=== PATIENT | female | born 1985 | race Caucasian/White ===

== ENCOUNTER 2017-02-08 07:18 | Day surgery (SDC) | payer MEDICAID ==
[~2017-02-08 07:18] MED LIST: DEXAMETHASONE SOD PHOSPHATE INJ 4 MG/1 ML VIAL ONE; IBUPROFEN INJ 800 MG/8 ML VIAL IV ONE; LIDOCAINE 2% INJ-PF (20 MG/ML) 10 ML AMPUL ONE; MIDAZOLAM 2 MG/2 ML INJ ONE; ONDANSETRON HCL INJ/PF 4 MG/2 ML SDV ONE; PROPOFOL INJ 200 MG/20 ML VIAL IV ONE
[2017-02-08 07:56] LABS: HEMATOCRIT 37.3 % (36.0-47.0); HGB HCT DIFFERENCE 1.7; MEAN CORPUSCULAR HEMOGLOBIN 30.2 pg (27.0-33.4); MEAN CORPUSCULAR HGB CONC 34.9 g/dL (32.0-36.0); MEAN CORPUSCULAR VOLUME 87 fl (80-97); RED BLOOD COUNT 4.31 10^6/uL (3.72-5.28); RED CELL DISTRIBUTION WIDTH 12.8 % (11.5-14.0); WHITE BLOOD COUNT 14.4 10^3/uL (4.0-10.5)
[2017-02-08] MEDS ORDERED: DOXYCYCLINE HYCLATE 100 MG in DEXTROSE 5%-WATER 250 ML IV PRN (08:45)
[2017-02-08 08:48] LABS: APPEARANCE,URINE SLIGHTLY-CLOUDY; BILIRUBIN,URINE NEGATIVE (NEGATIVE); GLUCOSE, URINE NEGATIVE (NEGATIVE); KETONES,URINE NEGATIVE (NEGATIVE); LEUKOCYTE ESTERASE,URINE TRACE (NEGATIVE); NITRITE,URINE NEGATIVE (NEGATIVE); PROTEIN,URINE NEGATIVE (NEGATIVE); URINE SPECIFIC GRAVITY 1.021; UROBILINOGEN,URINE NEGATIVE mg/dL (<2.0)
[2017-02-08] MEDS ORDERED: FENTANYL CITRATE INJ/PF 100 MCG/2 ML AMPUL ONE (09:37)
[2017-02-08] MEDS ORDERED: MISOPROSTOL 0.2 MG TABLET ONE (09:55)
[2017-02-08] MEDS ORDERED: OXYTOCIN 10 UNIT/ML VIAL ONE (09:57)
[2017-02-08] MEDS ORDERED: ONDANSETRON HCL INJ/PF 4 MG/2 ML SDV IV PRN (10:07)
[2017-02-08] MEDS ORDERED: OXYCODONE-ACETAMINOPHEN 5-325 MG TABLET PO PRN ×4 (10:07→10:34)
[2017-02-08] MEDS ORDERED: MEPERIDINE HCL/PF INJ 25 MG/1 ML DISP.SYRIN IV PRN (10:07)
[2017-02-08] MEDS ORDERED: PROMETHAZINE HCL INJ 25 MG/1 ML VIAL IV PRN ×2 (10:07)
[2017-02-08] MEDS ORDERED: MORPHINE SULFATE 10 MG/ML INJ IV PRN (10:07)
[2017-02-08] MEDS ORDERED: FENTANYL CITRATE INJ/PF 100 MCG/2 ML AMPUL IV PRN ×3 (10:07)
[2017-02-08] MEDS ORDERED: DIPHENHYDRAMINE HCL 50 MG/ML VIAL IV PRN (10:07)
--- NOTE | 2017-02-08 10:28 | OPERATIVE REPORT E ---
Operative Report NAME: MAURILIO SORTO : 1985 AGE: 31Y DATE OF SURGERY: 02/08/2017 ROOM: PREOPERATIVE DIAGNOSIS: Missed ab at 8 weeks. POSTOPERATIVE DIAGNOSIS: Missed ab at 8 weeks. OPERATION: Suction dilation and curettage. SURGEON: JOSE SAMUEL M.D. ANESTHESIA: Dr. Zelaya with [facility]. FINDINGS: The uterus sounded to approximately 10 cm. Copious amounts of products of conception were obtained followed by considerable bleeding that was resolved with uterotonic. COMPLICATIONS: None. ESTIMATED BLOOD LOSS: Two-hundred mL. SPECIMENS REMOVED: Products of conception. PROCEDURE IN DETAIL: Patient was taken to the operating room, prepared and draped in normal sterile fashion in dorsal lithotomy position. Under sterile conditions, an in and out cath was performed of approximately 25 mL of clear urine. A sterile speculum was placed into the vagina and the cervix was prepped with Betadine and the cervix was grasped with a single toothed tenaculum on the anterior lip. The uterus was then sounded to approximately 10 cm with a uterine sound. The cervix was then dilated up to accommodate an 8 mm curved curette and this was inserted and the suction curettage was performed with gentle curettage. Three passes were made with copious amounts of products of conception obtained with the suction. At the end of the third pass there was a considerable stream of blood that was noted coming from the cervix and this was tamponaded without good hemostasis. Cytotec was brought into the room and 1000 mcg were placed per rectum and 20 units of Pitocin were given to the patient through the IV by Anesthesia. We continued to watch the bleeding and the speculum was removed from the vagina after a sponge stick had been placed at the cervix for tamponade. We held pressure for approximately 5-7 minutes. The sponge stick was removed and the speculum was reinserted. The serosa was found to be hemostatic at this point with no bleeding noted. The patient's vitals never changed throughout the procedure. We watched carefully for another 5 minutes and found no change in her status at this point and the bleeding continued to be resolved. Sponge, lap, and needle counts were correct x2. Instrument count was correct x2 and the patient was taken to recovery in stable condition. DICTATING PHYSICIAN: JOSE SAMUEL M.D. [id number] PHY#: [id number] ID: [id number] JOB#: [id number] ACCT: [id number] cc:JOSE SAMUEL M.D. >
[2017-02-08] MEDS ORDERED: IBUPROFEN 800 MG TABLET PO PRN (10:33)
[2017-02-08] MEDS ORDERED: HYDROMORPHONE HCL INJ/PF 2 MG/ML AMPULE IV PRN (10:33)
[2017-02-08 12:26] VITALS: BP 127/84
== END 2017-02-08 12:00 | disposition home or self-care (01) ==
LOC: OROUT 07:18
PROVIDERS: ATTEND Obstetrics & Gynecology
PROC: 10D17ZZ Extraction of Products of Conception, Retained, Via Natural or Artificial Opening (ICD-10-PCS; principal; 2017-02-08 09:30)
DX: O02.1 Missed abortion (principal); E66.9 Obesity, unspecified; Z68.41 Body mass index [BMI] 40.0-44.9, adult
CPT/HCPCS: 86900; 86901; 36415; 84703; 85027; 81001; 88305 ×2; 59820; J2250; J1100; J3490 ×2; J3010; J2590; J2405; J7060; J2704; J1741; 1965

== ENCOUNTER 2017-07-13 10:39 | Emergency (ER) | payer MEDICAID ==
[2017-07-13] MEDS ORDERED: NORMAL SALINE 1000 ML 1,000 ML IV ONE (10:53)
[2017-07-13] MEDS ORDERED: ONDANSETRON HCL INJ/PF 4 MG/2 ML SDV IV ONE (10:54)
--- NOTE | 2017-07-13 10:59 | ER Document Report ---
ED Medical Screen (RME) - General Chief Complaint: Abdominal Pain Stated Complaint: ABDOMINAL PAIN,VOMITING Time Seen by Provider: 07/13/17 10:53 Mode of Arrival: Ambulatory Information source: Patient TRAVEL OUTSIDE OF THE [place] IN LAST 30 DAYS: No - HPI Patient complains to provider of: abd pain//vomiting blood Onset: Other - pt is G2Ab1 approx 7 weeks along with c/o lower abdominal pain with vomiting blood earlier today - Related Data Allergies/Adverse Reactions: Penicillins Allergy (Verified 07/13/17 10:44) Past Medical History - Social History Chew tobacco use (# tins/day): No Frequency of alcohol use: None Drug Abuse: None - Past Medical History Cardiac Medical History: Denies: Hx Coronary Artery Disease, Hx Heart Attack, Hx Hypertension Pulmonary Medical History: Denies: Hx Asthma, Hx Bronchitis, Hx COPD, Hx Pneumonia Neurological Medical History: Denies: Hx Cerebrovascular Accident, Hx Seizures Renal/ Medical History: Denies: Hx Peritoneal Dialysis Musculoskeltal Medical History: Denies Hx Arthritis Past Surgical History: Reports: Hx Adenoidectomy, Hx Gynecologic Surgery - D&C, Hx Tonsillectomy - T&A - Immunizations Immunizations up to date: Yes Hx Diphtheria, Pertussis, Tetanus Vaccination: Yes
[2017-07-13 11:28] LABS: ABSOLUTE BASOPHILS # (AUTO) 0.1 10^3/uL (0.0-0.2); ABSOLUTE EOSINOPHILS # (AUTO) 0.2 10^3/uL (0.0-0.6); ABSOLUTE MONOCYTES (AUTO) 0.7 10^3/uL (0.1-1.4); ABSOLUTE NEUT (AUTO) 12.4 10^3/uL (1.7-8.2); BASOPHILS % (AUTO) 0.5 % (0-2); HEMATOCRIT 38.9 % (36.0-47.0); HEMOGLOBIN 13.3 g/dL (12.0-15.5); LYMPHOCYTES % (AUTO) 12.9 % (13-45); MEAN CORPUSCULAR HEMOGLOBIN 29.6 pg (27.0-33.4); MEAN CORPUSCULAR HGB CONC 34.3 g/dL (32.0-36.0); MEAN CORPUSCULAR VOLUME 86 fl (80-97); MONOCYTES % (AUTO) 4.4 % (3-13); RED BLOOD COUNT 4.51 10^6/uL (3.72-5.28); RED CELL DISTRIBUTION WIDTH 13.5 % (11.5-14.0); SEGMENTED NEUTROPHILS % (AUTO) 81.2 % (42-78); WHITE BLOOD COUNT 15.2 10^3/uL (4.0-10.5)
[2017-07-13 11:37] LABS: AMORPHOUS SEDIMENT,URINE TRACE /HPF; APPEARANCE,URINE CLOUDY; BILIRUBIN,URINE NEGATIVE (NEGATIVE); CALCIUM OXALATE CRYSTALS,URINE TOO NUMEROUS TO CNT /HPF; GLUCOSE, URINE NEGATIVE (NEGATIVE); KETONES,URINE NEGATIVE (NEGATIVE); LEUKOCYTE ESTERASE,URINE TRACE (NEGATIVE); NITRITE,URINE NEGATIVE (NEGATIVE); PROTEIN,URINE 100 mg/dL (NEGATIVE); URINE SPECIFIC GRAVITY 1.032; UROBILINOGEN,URINE NEGATIVE mg/dL (<2.0)
--- NOTE | 2017-07-13 11:37 | ER Document Report ---
ED GI/ - General Chief Complaint: Abdominal Pain Stated Complaint: ABDOMINAL PAIN,VOMITING Time Seen by Provider: 07/13/17 10:53 Mode of Arrival: Ambulatory Notes: Patient is a 7 week female who presents to the ED complaining of mild abdominal pain and cramping with nausea and vomiting with concern for hematemesis. She states She found out she was last week, when she started feeling nauseous. She has not had an OB appointment to confirm IUP. She states over the past two days she has had a dull ache with intermittent sharp fleeting pain no higher than a 3 in severity for the past two days. She states this am that she felt more nauseous then normal and has been dry heaving with one episode of emesis which she felt was concerning for food from dinner the evening prior as well as possible blood. She states it was mildly sprinkled throughout but denies brian blood/clots/coffee ground emesis/hematochezia. PMH significant for missed in 01/2017 requiring D&C completed here. Otherwise healthy female TRAVEL OUTSIDE OF THE [place] IN LAST 30 DAYS: No - Related Data Allergies/Adverse Reactions: Penicillins Allergy (Verified 07/13/17 10:44) Past Medical History - General Information source: Patient - Social History Smoking Status: Former Smoker Chew tobacco use (# tins/day): No Frequency of alcohol use: None Drug Abuse: None Family History: None - Past Medical History Cardiac Medical History: Denies: Hx Coronary Artery Disease, Hx Heart Attack, Hx Hypertension Pulmonary Medical History: Denies: Hx Asthma, Hx Bronchitis, Hx COPD, Hx Pneumonia Neurological Medical History: Denies: Hx Cerebrovascular Accident, Hx Seizures Renal/ Medical History: Denies: Hx Peritoneal Dialysis Musculoskeltal Medical History: Denies Hx Arthritis Past Surgical History: Reports: Hx Adenoidectomy, Hx Gynecologic Surgery - D&C, Hx Tonsillectomy - T&A - Immunizations Immunizations up to date: Yes Hx Diphtheria, Pertussis, Tetanus Vaccination: Yes Review of Systems - Review of Systems Constitutional: No symptoms reported EENT: No symptoms reported Cardiovascular: No symptoms reported Respiratory: No symptoms reported Genitourinary: See HPI Female Genitourinary: See HPI -: Yes All other systems reviewed and negative Physical Exam - Vital signs Vitals: Temp Pulse Resp BP Pulse Ox 98.3 F 78 18 119/77 99 07/13/17 13:14 07/13/17 13:14 07/13/17 13:14 07/13/17 13:14 07/13/17 13:14 - Notes Notes: PHYSICAL EXAM GENERAL: Alert, interacts well. LUNGS: Clear to auscultation bilaterally, no wheezes, rales, or rhonchi. No respiratory distress. HEART: Regular rate and rhythm. No murmurs, gallops, or rubs. ABDOMEN: Soft, obese, nondistended, mild suprapubic tenderness. No guarding, rebound, or rigidity.. Bowel sounds present in all 4 quadrants. EXTREMITIES: Moves all 4 extremities spontaneously. No edema, radial and dorsalis pedis pulses 2/4 bilaterally. No cyanosis. NEUROLOGICAL: Alert and oriented x4. Normal speech. PSYCH: Normal affect, normal mood. SKIN: Warm, dry, normal turgor. No rashes or lesions noted. Course - Re-evaluation Re-evalutation: 07/13/17 12:17 Patient is a 31-year-old female hemodynamically stable, no acute distress afebrile. Main complaint today was nausea and vomiting. No evidence of leukocytosis with left shift noted on CBC. No evidence of anemia. Patient has not been throwing up since arrival. Zofran has helped. She denies any nausea currently. 07/13/17 13:51 Ultrasound shows living IUP without any evidence of subchorionic [place] [address] at this time. No evidence of vaginal bleeding or concern for threatened miscarriage. Discussed with patient to follow-up with her [facility] as scheduled or return to the emergency department with any worsening symptoms. Patient agrees with plan. Patient was tolerated p.o. fluids without any difficulty denies any nausea or abdominal pain at this time. Patient stable for discharge home. Which correlates with IUP age of approximately 6 weeks. - Vital Signs Vital signs: Temp Pulse Resp BP Pulse Ox 98.3 F 78 18 119/77 99 07/13/17 13:14 07/13/17 13:14 07/13/17 13:14 07/13/17 13:14 07/13/17 13:14 - Laboratory Result Diagrams: 07/13/17 11:11 07/13/17 11:11 Laboratory results interpreted by me: 07/13/17 07/13/17 07/13/17 11:00 11:11 11:11 WBC 15.2 H Seg Neutrophils % 81.2 H Lymphocytes % 12.9 L Absolute Neutrophils 12.4 H Sodium 136.9 L Carbon Dioxide 18 L Glucose 119 H Alkaline Phosphatase 130 H Beta HCG, Quant 04448.00 H Urine Protein 100 H Urine Blood MODERATE H Ur Leukocyte Esterase TRACE H - Diagnostic Test Radiology reviewed: Image reviewed, Reports reviewed Discharge - Discharge Clinical Impression: Nausea and vomiting during Condition: Good Disposition: HOME, SELF-CARE Additional Instructions: -There is no evidence of compromise of your current . You are currently 6 weeks with a due date of 03/06/2018 -Please be sure to follow-up with her [facility] as indicated otherwise follow-up at the emergency department for any signs of worsening symptoms, vaginal bleeding, worsening pain, if he cannot keep down any solids or fluids. VOMITING: Vomiting (or nausea without vomiting) can be caused by many other different problems. It can mean that something's wrong with the stomach, such as ulcers or inflammation or the intestinal tract, such as appendicitis. But it can also be a symptom of a problem that has nothing to do with the stomach or intestines. Vomiting is common with severe headaches, earaches, tonsillitis, and kidney infections, etc. We see it with pneumonia or heart attacks. Drugs can cause nausea and vomiting. Many abdominal problems cause vomiting; for example, gallstones, kidney stones, pancreatitis, and intestinal obstruction ( blocked bowels). In most cases, curing the vomiting depends on fixing the problem that caused it. For temporary relief, we may use an anti-nausea medicine. For home use, we can prescribe suppositories, chewable pills, pills that dissolve in the mouth, or liquid anti-nausea drugs. If the vomiting seems to be caused by a problem in the stomach, acid-suppressing drugs may be prescribed as well. It's important to avoid dehydration. Sip small amounts of clear liquids ( soft drinks, tea, broth, etc) . Try to take fluids frequently even if you are vomiting to prevent dehydration. Take increasing amounts of fluid and when liquids are being consumed successfully, advance to small amounts of bland food (toast, soups, mashed potatoes, etc.) until you are able to resume a regular diet. Avoid aspirin, tobacco, and alcohol. If the vomiting worsens, if the problem that's making you vomit worsens, or if there's evidence of bleeding in the stomach (such as black, tarry stool, or bloody or black vomit), you should return immediately. Also, return if abdominal pain worsens or becomes localized to one area or you develop high fever. Call your doctor if you aren't improved in 24 hours. INTRAVENOUS (I V) FLUIDS: As part of your care today, you received intravenous (IV) fluids. IV fluids are administered to patients who are dehydrated or to those who have certain chemical (electrolyte) abnormalities that need correcting. ANTINAUSEA MEDICATION: You have been given a medication to suppress nausea and vomiting. This type of medication can be given as a shot, pill, or suppository. It will usually last for many hours. Pills and shots usually last six to eight hours. For the typical illness, only one or two doses of the medication may be necessary. Mild lightheadedness may occur. This type of medicine can cause drowsiness. Do not drive or operate dangerous machinery while under its influence. Do not mix with alcohol. See your doctor at once if you have muscle spasms or tightness, or uncontrollable motions (particularly of the neck, mouth, or jaw). Persistent vomiting or severe lightheadedness should also be evaluated by the physician. FOLLOW-UP CARE: If you have been referred to a physician for follow-up care, call the physician s office for an appointment as you were instructed or within the next two days. If you experience worsening or a significant change in your symptoms, notify the physician immediately or return to the Emergency Department at any time for re-evaluation. Prescriptions: Ondansetron [Zofran Odt 4 mg Tablet] 1 tab PO Q4H PRN #15 tab.rapdis PRN Reason: For Nausea/Vomiting [facility] [NO LOCAL MD] - Follow up in 1 month
[2017-07-13 11:44] LABS: ALANINE AMINOTRANSFERASE 25 U/L (9-52); ALBUMIN 4.5 g/dL (3.5-5.0); ALKALINE PHOSPHATASE 130 U/L (38-126); ANION GAP 17 (5-19); ASPARTATE AMINO TRANSFERASE 16 U/L (14-36); BILIRUBIN,DIRECT 0.3 mg/dL (0.0-0.4); BILIRUBIN,TOTAL 0.5 mg/dL (0.2-1.3); BLOOD UREA NITROGEN 10 mg/dL (7-20); CALCIUM 10.1 mg/dL (8.4-10.2); CARBON DIOXIDE 18 mmol/L (22-30); CHLORIDE 102 mmol/L (98-107); CREATININE RESULT 0.69 mg/dL (0.52-1.25); GLUCOSE 119 mg/dL (75-110); LIPASE 101.7 U/L (23-300); POTASSIUM 4.4 mmol/L (3.6-5.0); SODIUM 136.9 mmol/L (137-145); TOTAL PROTEIN 7.5 g/dL (6.3-8.2)
--- NOTE | 2017-07-13 12:19 | RADIOLOGY REPORT (SQ) ---
EXAM DESCRIPTION: U/S OB TRANSVAG W/DOPPLER COMPLETED DATE/TIME: 07/13/2017 12:03 pm REASON FOR STUDY: abd pain COMPARISON: None. TECHNIQUE: Endovaginal static and realtime grayscale images acquired of the pelvis. Additional selec fuad spectral and color Doppler images recorded. All images stored on PACs. bHCG: Not available. Last menses 05/30/2017 LIMITATIONS: None. FINDINGS: FETUS: Living intrauterine . EGA: 6 weeks 2 days by mean sac diameter and crown-rump length HALLEY: 03/06/2018 FHR: Cardiac flicker noted at real-time, M-mode Doppler of 109 beats per minute. SUBCHORIONIC BLEED: No SIZE OF BLEED: Not applicable. UTERUS: No masses. No anomalies. 8.6 x 4.4 x 4.5 cm in size. CERVICAL LENGTH: 3 cm Closed. RIGHT ADNEXA: Not visualized due to adnexal bowel gas. LEFT ADNEXA: Normal ovary with normal vascular flow. Left ovary 2 x 1.2 x 1.1 cm in size No adnexal free fluid. No adnexal masses. FREE FLUID: None. OTHER: No other significant finding. IMPRESSION: LIVING INTRAUTERINE . EGA 6 weeks 2 days. Embryo cardiac activity 109 beats per minute Trimester of : First - 0 to 13 weeks. TECHNICAL DOCUMENTATION: JOB ID: [id number] [employer]- All Rights Reserved
[2017-07-13 14:16] VITALS: BP 139/82
== END 2017-07-13 14:16 | disposition home or self-care (01) ==
LOC: ER 10:39
DX: O21.9 Vomiting of pregnancy, unspecified (principal); R10.9 Unspecified abdominal pain; Z3A.01 Less than 8 weeks gestation of pregnancy; Z88.0 Allergy status to penicillin
CPT/HCPCS: 99284; 36415; 84702; 83690; 85025; 80053; 81001; 76817; 93976; J2405; J7030

== ENCOUNTER 2017-07-24 00:28 | Emergency (ER) | payer MEDICAID ==
--- NOTE | 2017-07-24 02:02 | ER Document Report ---
ED GI/ <MARGARET MENDES - Last Filed: 07/24/17 03:59> - General Mode of Arrival: Ambulatory Information source: Patient TRAVEL OUTSIDE OF THE [place] IN LAST 30 DAYS: No <ALISON LANG - Last Filed: 07/24/17 04:45> - General Chief Complaint: Vag Bleeding, +preg <12wks Stated Complaint: VAGINAL BLEEDING AND CRAMPING Time Seen by Provider: 07/24/17 01:50 Notes: Patient is a 31-year-old female presenting emergency department for vaginal bleeding. Patient states she is a 7 weeks with a history of A1. Patient states that she started spotting at 00:30 this morning and now she is having a heavier flow with some clots. Patient also complains of pelvic cramping. Patient denies any urinary symptoms. Patient states she had a miscarriage with D&C on 02/08/2017; patient states she was about 10 weeks at that time. Patient's blood type is O+. PCP is Dr. Fernandes at [facility]. (ALISON LANG) - Related Data Allergies/Adverse Reactions: Penicillins Allergy (Verified 07/13/17 10:44) Past Medical History - General Information source: Patient - Social History Smoking Status: Never Smoker Cigarette use (# per day): No Chew tobacco use (# tins/day): No Smoking Education Provided: No Frequency of alcohol use: None Drug Abuse: None Family History: None Patient has suicidal ideation: No Patient has homicidal ideation: No Past Surgical History: Reports: Hx Adenoidectomy, Hx Dilation and Curettage - , Hx Gynecologic Surgery - D&C, Hx Tonsillectomy - T&A - Immunizations Immunizations up to date: Yes Hx Diphtheria, Pertussis, Tetanus Vaccination: Yes <ALISON LANG - Last Filed: 07/24/17 04:45> Review of Systems - Review of Systems Constitutional: No symptoms reported EENT: No symptoms reported Cardiovascular: No symptoms reported Respiratory: No symptoms reported Gastrointestinal: See HPI, Abdominal pain Genitourinary: No symptoms reported Female Genitourinary: See HPI, , Vaginal bleeding Musculoskeletal: No symptoms reported Skin: No symptoms reported Hematologic/Lymphatic: No symptoms reported Neurological/Psychological: No symptoms reported -: Yes All other systems reviewed and negative <ALISON LANG - Last Filed: 07/24/17 04:45> Physical Exam <VAUGHNMARGARET Sorensen - Last Filed: 07/24/17 03:59> - Vital signs Interpretation: Hypertensive <ALISON LANG - Last Filed: 07/24/17 04:45> - Vital signs Vitals: Temp Pulse Resp BP Pulse Ox 98.3 F 89 16 144/80 H 100 07/24/17 01:20 07/24/17 01:20 07/24/17 01:20 07/24/17 01:20 07/24/17 01:20 - Notes Notes: GENERAL: Alert, interacts well. No acute distress. HEAD: Normocephalic, atraumatic. EYES: Appear normal. Pupils equal, round, and reactive to light. ENT: Moist mucus membranes, tongue midline. NECK: Full range of motion. Supple. Trachea midline. LUNGS: Clear to auscultation bilaterally, no wheezes, rales, or rhonchi. No respiratory distress. HEART: Regular rate and rhythm. No murmurs, gallops, or rubs. ABDOMEN: Soft, non-tender. Non-distended. Normal bowel sounds. EXTREMITIES: Moves all 4 extremities spontaneously. Normal strength. No edema. NEUROLOGICAL: Alert and oriented x3. Normal speech. No focal neurological deficits. GCS 15. PSYCH: Normal affect, normal mood. SKIN: Warm, dry, normal turgor. No rashes or lesions noted. (ALISON LANG) Course - Laboratory Result Diagrams: 07/24/17 02:11 - Diagnostic Test Radiology reviewed: Reports reviewed - Ultrasound shows a 7 week 4 day viable with heart rate of 144. There is no subchorionic bleed seen. There is minimal fluid in the cervical canal. <VAUGHNMARGARET Sorensen - Last Filed: 07/24/17 03:59> - Laboratory Result Diagrams: 07/24/17 02:11 <ALISON LANG - Last Filed: 07/24/17 04:45> - Vital Signs Vital signs: Temp Pulse Resp BP Pulse Ox 97.9 F 80 16 134/86 H 100 07/24/17 04:09 07/24/17 04:09 07/24/17 04:09 07/24/17 04:09 07/24/17 04:09 - Laboratory Laboratory results interpreted by me: 07/24/17 07/24/17 07/24/17 02:04 02:11 02:11 WBC 16.6 H Absolute Neutrophils 12.8 H Beta HCG, Quant 640851.00 H Urine Blood LARGE H Discharge <VAUGHNMARGARET - Last Filed: 07/24/17 03:59> <ALISON LANG - Last Filed: 07/24/17 04:45> - Discharge Clinical Impression: Vaginal bleeding before 22 weeks gestation, with 7 completed weeks gestation Condition: Stable Disposition: HOME, SELF-CARE Additional Instructions: Bleeding During Early : You have been evaluated for passing blood while . While we take this symptom very seriously, most women with your degree of bleeding will go on to have a perfectly normal baby. At this time, there is no indication that a miscarriage will occur. (A miscarriage occurs when the fetus is abnormal. There is no medicine or treatment to prevent it.) A more serious cause of bleeding is tubal . An ultrasound can show whether the is in the uterus or in the tube. Sometimes in early , no fetus is seen. In this case, careful follow-up, including repeat blood tests and repeat ultrasound, is necessary. You should rest in bed until the symptoms have resolved. Do not douche or have sex for at least a week, or until OK'd by the doctor. Don't use tampons. Call the doctor or return for re-examination if there is an increase in bleeding or cramping, extreme weakness, fainting, new abdominal pain, fever, or passage of tissue. Your ultrasound showed a measuring 7 weeks 4 days with a heart rate of 144. There was no subchorionic bleed noted. You should drink plenty fluids and rest until the bleeding and cramping has stopped. Follow-up with your [facility] [facility] doctor in the next few days for recheck. Referrals: JOSE SAMUEL MD [Primary Care Provider] - Follow up in 3-5 days Scribe Attestation: 07/24/17 04:02 I personally performed the services described in the documentation, reviewed and edited the documentation which was dictated to the scribe in my presence, and it accurately records my words and actions. (MARGARET MENDES) Scribe Documentation - Scribe Written by Scribe:: Maureen Perez, 07/24/2017 2:20 acting as scribe for :: Vaughn <ALISON LANG - Last Filed: 07/24/17 04:45>
[2017-07-24 02:22] LABS: ABSOLUTE BASOPHILS # (AUTO) 0.1 10^3/uL (0.0-0.2); ABSOLUTE EOSINOPHILS # (AUTO) 0.1 10^3/uL (0.0-0.6); ABSOLUTE MONOCYTES (AUTO) 0.7 10^3/uL (0.1-1.4); ABSOLUTE NEUT (AUTO) 12.8 10^3/uL (1.7-8.2); BASOPHILS % (AUTO) 0.3 % (0-2); EOSINOPHILS % (AUTO) 0.7 % (0-6); HEMATOCRIT 36.2 % (36.0-47.0); HEMOGLOBIN 12.7 g/dL (12.0-15.5); HGB HCT DIFFERENCE 1.9; LYMPHOCYTES % (AUTO) 17.8 % (13-45); MEAN CORPUSCULAR HEMOGLOBIN 30.2 pg (27.0-33.4); MEAN CORPUSCULAR VOLUME 86 fl (80-97); MONOCYTES % (AUTO) 4.3 % (3-13); RED BLOOD COUNT 4.19 10^6/uL (3.72-5.28); RED CELL DISTRIBUTION WIDTH 13.6 % (11.5-14.0); SEGMENTED NEUTROPHILS % (AUTO) 76.9 % (42-78); WHITE BLOOD COUNT 16.6 10^3/uL (4.0-10.5)
[2017-07-24 03:11] LABS: APPEARANCE,URINE SLIGHTLY-CLOUDY; BILIRUBIN,URINE NEGATIVE (NEGATIVE); CALCIUM OXALATE CRYSTALS,URINE MANY /HPF; GLUCOSE, URINE NEGATIVE (NEGATIVE); KETONES,URINE NEGATIVE (NEGATIVE); LEUKOCYTE ESTERASE,URINE NEGATIVE (NEGATIVE); NITRITE,URINE NEGATIVE (NEGATIVE); PROTEIN,URINE NEGATIVE (NEGATIVE); UROBILINOGEN,URINE NEGATIVE mg/dL (<2.0)
--- NOTE | 2017-07-24 03:41 | RADIOLOGY REPORT (SQ) ---
EXAM DESCRIPTION: U/S OB TRANSVAGINAL W/O DOP COMPLETED DATE/TIME: 07/24/2017 3:20 am REASON FOR STUDY: 7w5d, bleeding, cramping COMPARISON: 07.13.17 TECHNIQUE: Transvaginal static and realtime grayscale images acquired of the pelvis. Additional new cted spectral and color Doppler images recorded. All images stored on PACs. bHCG: Not available. LIMITATIONS: None. FINDINGS: FETUS: Living intrauterine . EGA: 7 weeks and 4 days HALLEY: 03/08/2018 FHR: 144 beats per minute. SUBCHORIONIC BLEED: No. SIZE OF BLEED: Not applicable. UTERUS: No masses. No anomalies. CERVICAL LENGTH: 3.4 cm. Closed. Minimal fluid within the cervical canal. RIGHT ADNEXA: Ovary not identified. No adnexal free fluid. No adnexal masses. LEFT ADNEXA: Ovary not identified. No adnexal free fluid. No adnexal masses. FREE FLUID: None. OTHER: No other significant finding. IMPRESSION: LIVING INTRAUTERINE . EGA 7 weeks and 4 days Trimester of : First - 0 to 13 weeks. TECHNICAL DOCUMENTATION: JOB ID: [id number] [employer]- All Rights Reserved
[2017-07-24 04:22] VITALS: BP 134/86
== END 2017-07-24 04:09 | disposition home or self-care (01) ==
LOC: ER 00:28
DX: O20.9 Hemorrhage in early pregnancy, unspecified (principal); Z3A.01 Less than 8 weeks gestation of pregnancy; Z88.0 Allergy status to penicillin
CPT/HCPCS: 36415; 76817; 81001; 84702; 85025; 99284

== ENCOUNTER 2017-07-28 17:08 | Emergency (ER) | payer MEDICAID ==
[2017-07-28 19:32] LABS: ABSOLUTE EOSINOPHILS # (AUTO) 0.1 10^3/uL (0.0-0.6); ABSOLUTE LYMPHOCYTES (AUTO) 2.5 10^3/uL (0.5-4.7); BASOPHILS % (AUTO) 0.2 % (0-2); EOSINOPHILS % (AUTO) 0.4 % (0-6); HEMATOCRIT 39.3 % (36.0-47.0); HEMOGLOBIN 13.5 g/dL (12.0-15.5); HGB HCT DIFFERENCE 1.2; LYMPHOCYTES % (AUTO) 13.3 % (13-45); MEAN CORPUSCULAR HGB CONC 34.4 g/dL (32.0-36.0); MEAN CORPUSCULAR VOLUME 87 fl (80-97); MONOCYTES % (AUTO) 5.6 % (3-13); RED BLOOD COUNT 4.51 10^6/uL (3.72-5.28); RED CELL DISTRIBUTION WIDTH 13.6 % (11.5-14.0); SEGMENTED NEUTROPHILS % (AUTO) 80.5 % (42-78); WHITE BLOOD COUNT 18.7 10^3/uL (4.0-10.5)
--- NOTE | 2017-07-28 19:45 | ER Document Report ---
ED Medical Screen (RME) - General Chief Complaint: Vag Bleeding, +preg <12wks Stated Complaint: VAGINAL BLEEDING Time Seen by Provider: 07/28/17 18:32 Notes: 31-year-old female presents emergency department complaining of intermittent vaginal bleeding since Monday, states she has been seen by an UI DESIGNER since then and had an ultrasound that showed an intrauterine with normal heartbeat and a closed cervix however since that time she has developed heavy vaginal bleeding that she states is bright red and less than 1 pad per hour. Denies dizziness or lightheadedness, denies lower abdominal pain, she is a A1. TRAVEL OUTSIDE OF THE [place] IN LAST 30 DAYS: No - Related Data Allergies/Adverse Reactions: Penicillins Allergy (Verified 07/28/17 18:44) Past Medical History - Social History Cigarette use (# per day): No Frequency of alcohol use: None Drug Abuse: None Lives with: Spouse/Significant other Family history: Reviewed & Not Pertinent - Past Medical History Cardiac Medical History: Denies: Hx Coronary Artery Disease, Hx Heart Attack, Hx Hypertension Pulmonary Medical History: Denies: Hx Asthma, Hx Bronchitis, Hx COPD, Hx Pneumonia Neurological Medical History: Denies: Hx Cerebrovascular Accident, Hx Seizures Renal/ Medical History: Denies: Hx Peritoneal Dialysis Musculoskeltal Medical History: Denies Hx Arthritis Past Surgical History: Reports: Hx Adenoidectomy, Hx Dilation and Curettage - , Hx Gynecologic Surgery - D&C, Hx Tonsillectomy - T&A - Immunizations Immunizations up to date: Yes Hx Diphtheria, Pertussis, Tetanus Vaccination: Yes Review of Systems - Review of Systems Constitutional: No symptoms reported EENT: No symptoms reported Female Genitourinary: See HPI -: Yes All other systems reviewed and negative Physical Exam - Vital signs Vitals: Temp Pulse Resp BP Pulse Ox 98.3 F 98 20 133/83 H 98 07/28/17 17:21 07/28/17 17:21 07/28/17 17:21 07/28/17 17:21 07/28/17 17:21 - Notes Notes: GENERAL: Alert, interacts well. No acute distress. HEAD: Normocephalic, atraumatic EYES: Pupils equal, round and reactive to light, extraocular movements intact. ENT: Oral mucosa moist, tongue midline. NECK: Full range of motion, supple, trachea midline. LUNGS: Clear to auscultation bilaterally, no wheezes, rales or rhonchi, no respiratory distress. HEART: Regular rate and rhythm, no murmurs, gallops, rubs. ABDOMEN: Soft, nontender, nondistended, bowel sounds present in all 4 quadrants. EXTREMITIES: Moves all 4 extremities spontaneously, no edema, radial pulses 2/4 bilaterally. No cyanosis. NEUROLOGICAL: Alert and oriented x3, normal speech. PSYCH: Normal mood, normal affect. SKIN: Warm, Dry, normal turgor, no rashes or lesions noted. Course - Re-evaluation Re-evalutation: 07/28/17 21:10 Living intrauterine 8 weeks 2 days heart rate is 165 bpm, there is now a subchorionic hemorrhage which is 2.9 x 1.8 x 3.6 cm, the cervix is closed. Rhogam is not indicated as she is O+. The new subchorionic hemorrhage explains the bleeding. Patient will be discharged home on pelvic rest has a follow-up appointment on Monday. - Vital Signs Vital signs: Temp Pulse Resp BP Pulse Ox 98.3 F 90 18 140/90 H 99 07/28/17 17:21 07/28/17 21:09 07/28/17 21:09 07/28/17 21:09 07/28/17 21:09 - Laboratory Result Diagrams: 07/28/17 19:10 Laboratory results interpreted by me: 07/28/17 19:10 WBC 18.7 H Seg Neutrophils % 80.5 H Absolute Neutrophils 15.0 H Doctor's Discharge - Discharge Clinical Impression: Vaginal bleeding before 22 weeks gestation Subchorionic hemorrhage in first trimester Qualifiers: Fetus number: single or unspecified fetus Qualified Code(s): O41.8X10 - Other specified disorders of amniotic fluid and membranes, first trimester, not applicable or unspecified; O46.8X1 - Other antepartum hemorrhage, first trimester Condition: Stable Disposition: HOME, SELF-CARE Additional Instructions: You have a subchorionic hemorrhage. It is 2.9 x 1.8 x 3.6 cm. Do not put anything in your vagina until the bleeding stops or you are seen by OB. Forms: Elevated Blood Pressure
--- NOTE | 2017-07-28 21:00 | RADIOLOGY REPORT (SQ) ---
EXAM DESCRIPTION: U/S OB TRANSVAG W/DOPPLER COMPLETED DATE/TIME: 07/28/2017 8:42 pm REASON FOR STUDY: 8 wk , vaginal bleeding COMPARISON: 07/13/2017 TECHNIQUE: Transvaginal static and realtime grayscale images acquired of the pelvis. Additional new cted spectral and color Doppler images recorded. All images stored on PACs. bHCG: Not available. LIMITATIONS: None. FINDINGS: FETUS: Living intrauterine . EGA: 8 weeks 2 days HALLEY: 03/07/2018 FHR: 165 beats per minute. SUBCHORIONIC BLEED: Yes. SIZE OF BLEED: 2.9 x 1.8 x 3.6 cm. UTERUS: Normal. CERVICAL LENGTH: 4.1 cm. Closed. RIGHT ADNEXA: Ovary not identified. No adnexal free fluid. No adnexal masses. LEFT ADNEXA: Ovary not identified. No adnexal free fluid. No adnexal masses. FREE FLUID: None. OTHER: No other significant finding. IMPRESSION: LIVING INTRAUTERINE . EGA 8 WEEKS 2 DAYS. SUBCHORIONIC HEMATOMA ABOVE. Trimester of : First - 0 to 13 weeks. TECHNICAL DOCUMENTATION: JOB ID: [id number] [employer]- All Rights Reserved
[2017-07-28 21:09] VITALS: BP 140/90
== END 2017-07-28 21:09 | disposition home or self-care (01) ==
LOC: ER 17:08
DX: O46.8X9 Other antepartum hemorrhage, unspecified trimester (principal); Z3A.00 Weeks of gestation of pregnancy not specified; Z88.0 Allergy status to penicillin
CPT/HCPCS: 36415; 76817; 84702; 85025; 86900; 86901; 93976; 99284

== ENCOUNTER 2018-06-12 21:55 | Emergency (ER) | payer MEDICAID ==
--- NOTE | 2018-06-12 22:49 | RADIOLOGY REPORT (SQ) ---
EXAM DESCRIPTION: FINGER LEFT COMPLETED DATE/TIME: 06/12/2018 10:14 pm REASON FOR STUDY: jammed L middle finger/ pain COMPARISON: None. NUMBER OF VIEWS: Three views. TECHNIQUE: AP, lateral, and oblique images acquired of the left third finger. LIMITATIONS: None. FINDINGS: MINERALIZATION: Normal. BONES: No acute fracture or dislocation. No worrisome bone lesions. SOFT TISSUES: No soft tissue swelling. No foreign body. OTHER: No other significant finding. IMPRESSION: NO RADIOGRAPHIC EVIDENCE OF ACUTE INJURY. COMMENT: SITE OF TRAUMA/COMPLAINT MARKED/STAMP COMPLETED: No TECHNICAL DOCUMENTATION: JOB ID: [id number] [employer]- All Rights Reserved Reading location - IP/workstation name: [email or web address]
[2018-06-12 23:05] VITALS: BP 151/88
--- NOTE | 2018-06-13 00:07 | ER Document Report ---
HPI - HPI Patient complains to provider of: left middle finger injury Pain Level: 4 Context: Patient is a 32-year-old female who comes emergency department for chief complaint of injury to the left middle finger. She accidentally jammed her hand while jerking her hand, she jammed it on the other arm. She reports pain especially with movement and possible small swelling. She denies any other injuries or complaints. - REPRODUCTIVE Reproductive: DENIES: : Past Medical History - General Information source: Patient - Social History Smoking Status: Never Smoker Frequency of alcohol use: None Drug Abuse: None Lives with: Family Family History: None - Medical History Medical History: Negative - Past Medical History Cardiac Medical History: Denies: Hx Coronary Artery Disease, Hx Heart Attack, Hx Hypertension Pulmonary Medical History: Denies: Hx Asthma, Hx Bronchitis, Hx COPD, Hx Pneumonia Neurological Medical History: Denies: Hx Cerebrovascular Accident, Hx Seizures Renal/ Medical History: Denies: Hx Peritoneal Dialysis Musculoskeletal Medical History: Denies Hx Arthritis Past Surgical History: Reports: Hx Adenoidectomy, Hx Dilation and Curettage - , Hx Gynecologic Surgery - D&C, Hx Tonsillectomy - T&A - Immunizations Immunizations up to date: Yes Hx Diphtheria, Pertussis, Tetanus Vaccination: Yes Vertical Provider Document - CONSTITUTIONAL General Appearance: WD/WN, No Apparent Distress - INFECTION CONTROL TRAVEL OUTSIDE OF THE [place] IN LAST 30 DAYS: No - HEENT HEENT: Atraumatic, Normocephalic - NECK Neck: Normal Inspection - RESPIRATORY Respiratory: Breath Sounds Normal, No Respiratory Distress - CARDIOVASCULAR Cardiovascular: Regular Rate, Regular Rhythm - GI/ABDOMEN Gastrointestinal: Abdomen Soft, Abdomen Non-Tender - BACK Back: Normal Inspection - MUSCULOSKELETAL/EXTREMETIES Musculoskeletal/Extremeties: Tender - Tenderness with questionable general soft tissue swelling over the left middle finger, normal range of motion, normal capillary refill and sensation, no wounds or ecchymosis, normal hand exam otherwise. Course - Re-evaluation Re-evalutation: X-ray unremarkable. Physical examination suggesting a sprain but no evidence of significant injury. Ambrocio taping was performed for patient and she was shown how to do this at home. Given supplies. Discussed follow-up and return precautions. Patient states understanding and agreement. - Vital Signs Vital signs: Temp Pulse Resp BP Pulse Ox 98.3 F 78 16 151/88 H 94 06/12/18 22:32 06/12/18 22:32 06/12/18 22:32 06/12/18 22:32 06/12/18 22:32 Discharge - Discharge Clinical Impression: Injury of left middle finger Qualifiers: Encounter type: initial encounter Qualified Code(s): S69.92XA - Unspecified injury of left wrist, hand and finger(s), initial encounter Condition: Stable Disposition: HOME, SELF-CARE Additional Instructions: Your examination is consistent with sprain of the left middle finger, no fracture or other abnormality is seen. Ambrocio tape as shown at least for the next couple of days, apply ice (you can do 10-15 minutes for 3 or 4 times a day). Take [id number] anti-inflammatory such as ibuprofen or naproxen. Follow-up with primary care. Return for any concerning symptoms including severe swelling or pain. Prescriptions: Naproxen 500 mg PO BID PRN #20 tablet PRN Reason: Forms: Elevated Blood Pressure
== END 2018-06-12 23:50 | disposition home or self-care (01) ==
LOC: ER 21:55
DX: S69.92XA Unspecified injury of left wrist, hand and finger(s), initial encounter (principal); W51.XXXA Accidental striking against or bumped into by another person, initial encounter
CPT/HCPCS: 99283